=== PATIENT | male | born 1970 ===

== ENCOUNTER 2017-04-05 06:10 | Day surgery (SDC) | payer BC ==
[2017-03-29 12:19] VITALS: BMI 32.8
[2017-04-05] MEDS ORDERED: Lidocaine 2% Inj (20ml) ONE (06:34)
[2017-04-05] MEDS ORDERED: Phenylephrine 10 mg/ml Inj ONE (06:34)
[2017-04-05] MEDS ORDERED: HEPARIN SODIUM/NS 2,000 ML IV ONE (06:35)
[2017-04-05] MEDS ORDERED: Iohexol 350mgl/ml 50 ML ONE (06:35)
[2017-04-05] MEDS ORDERED: Iodixanol 320 MG/ML 100 ML BOTTLE IV ONE (06:35)
[2017-04-05] MEDS ORDERED: Nitroglycerin 50mg in D5W 50 MG/250 ML BOTTLE IV ONE (06:35)
[2017-04-05] MEDS ORDERED: Iodixanol 320 MG/ML 200 ML BOTTLE IV ONE ×2 (06:35→08:51)
[2017-04-05] MEDS ORDERED: Midazolam 2 MG/2 ML VIAL ONE ×3 (07:02→08:47)
[2017-04-05 07:13] LABS: BASO # 0.03 K/mm3 (0.0-2.0); BASO % 0.3 % (0.0-3.0); EOS # 0.2 (0.0-0.7); EOS % 2.4 % (1.5-5.0); GRAN # 4.4 (1.4-6.5); GRAN % 46.8 % (50.0-68.0); HEMOGLOBIN 15.2 g/dL (14.0-18.0); LYMPH # 4.1 (1.2-3.4); LYMPH % 43.5 % (22.0-35.0); MEAN CELL VOLUME 93.3 fl (80.0-105.0); MEAN CORPUSCULAR HEMOGLOBIN 30.9 pg (25.0-35.0); MEAN CORPUSCULAR HGB CONC 33.1 g/dl (31.0-37.0); MEAN PLATELET VOLUME 9.3 fl (7.0-11.0); MONO # 0.7 (0.1-0.6); RBC 4.92 10^6/uL (3.5-6.1); RED CELL DISTRIBUTION WIDTH 13.4 % (11.5-14.5); WHITE BLOOD COUNT 9.4 10^3/ul (4.5-11.0)
[2017-04-05 07:23] LABS: BLOOD UREA NITROGEN 20 mg/dL (7-21); GFR AFRICAN-AMERICAN > 60; GFR NON-AFRICAN AMERICAN > 60; PARTIAL THROMBOPLASTIN TIME 33.1 Seconds (25.1-36.5)
[2017-04-05] MEDS ORDERED: HEPARIN SODIUM/NS 1,000 ML IV ONE (08:51)
[2017-04-05] MEDS ORDERED: Sodium Chloride 0.9% 1,000 ML IV SCH (09:30)
--- NOTE | 2017-04-05 10:35 | CARDCATH ---
PROCEDURE DATE: 04/05/2017 HISTORY: The patient is a 46-year-old male who is status post acute inferior wall myocardial infarction, treated in [place] with a combination of PTCA and coronary artery bypass surgery. Multiple efforts to obtain the medical records from [facility] were unsuccessful and scanty. The patient underwent a stress test which showed apical and inferior ischemic areas. The patient continues to experience ongoing chest pain. Because of this, a cardiac catheterization was recommended. PROCEDURES: Left heart catheterization with coronary arteriography, left ventriculogram, CARVAJAL angiogram, IVUS of the left main artery as well as PTCA of the distal LAD through the CARVAJAL were performed. There were no complications. The right femoral artery was cannulated with a 6-Armenian sheath. There were no complications. I performed moderate sedation, which included the presence of an independent trained observer that assisted in monitoring the patient's level of consciousness and physiologic status. After administration of Versed and fentanyl, my intra service time was 30 minutes. The findings on catheterization revealed left ventricle that revealed a severely hypokinetic inferoapical region. The anterior wall contracted well. Estimated ejection fraction is approximately 45%. His coronary anatomy revealed a right dominant circulation. The RCA revealed patent stents in the proximal and midportion of the RCA with good flow. The left main artery revealed ostial stenosis with an IVUS, evaluation of a 60% stenosis in the proximal left main artery stenoses. The circumflex artery and obtuse marginal branches revealed diffuse intimal irregularities without critical stenoses. The LAD revealed a 90% stenosis in the proximal portion as well as a 80% stenosis at the takeoff of a diagonal vessel. The rest of the LAD revealed to-and-fro flow consistent with a bypass graft. The CARVAJAL was visualized and found to be anastomosed to the distal LAD. The CARVAJAL was patent. At the anastomotic site with the coronary arteries, there was a 99% stenoses in the apex of the LAD just after the anastomotic site. There was retrograde flow to the LAD and partially into the diagonal vessel through the CARVAJAL. The patient was started on intravenous Angiomax. IVUS of the left main artery revealed an ostial as well as midbody eccentric 60% stenosis of the left main artery. The guiding catheter was placed in the ostium of the CARVAJAL. An ATW wire and finally was used to cross the critical lesion in the LAD after the anastomotic site. Attempts at using a 2.0 and a 1.5 balloon could not cross the diffusely diseased and small portion of the apical LAD. The proximal portion of the lesion was dilated with 1.5 without significant improvement of the stenosis. The procedure was aborted. The manual compression was used to close the femoral artery site. The patient tolerated the procedure well. In summary, the procedure revealed attempted PTCA of the apical critical lesion of the LAD through the CARVAJAL. Coronary arteriography revealed a left main artery of 60% confirmed by IVUS. There are critical lesions in the proximal LAD as well as the mid LAD at the takeoff of the diagonal vessel. The circumflex artery was free of significant disease. There is patent stents in the RCA. There is a patent CARVAJAL to the LAD with only retrograde filling of the LAD and partially down the diagonal vessel. Given these findings, the patient's treatment will be continued medical therapy. The patient is at risk for progressive coronary artery disease. He will need to remain on aspirin indefinitely and Brilinta at reduced doses for at least a year. He needs to undergo a strict cardiac risk reduction program. Quang Steve MD
--- NOTE | 2017-04-05 17:02 | CARD ---
APPROVED REPORT EKG Measurement Heart [id number] [place] 156P6 [id number] <Conclusion> Normal sinus rhythm Left axis deviation Minimal voltage criteria for LVH, may be normal variant Inferior infarct, age undetermined Abnormal ECG
--- NOTE | 2017-04-05 17:06 | CARD ---
APPROVED REPORT EKG Measurement Heart [id number] [place] 158P22 [id number] <Conclusion> Normal sinus rhythm Left axis deviation Moderate voltage criteria for LVH, may be normal variant Lateral infarct, age undetermined Inferior infarct, age undetermined Abnormal ECG
[2017-04-05 17:50] VITALS: RESP 20
[2017-04-06 01:18] VITALS: TEMP 98
[2017-04-06 06:13] VITALS: O2SAT 98
[2017-04-06 06:18] LABS: BASO # 0.02 K/mm3 (0.0-2.0); BASO % 0.2 % (0.0-3.0); EOS # 0.2 (0.0-0.7); EOS % 2.6 % (1.5-5.0); GRAN # 4.32 (1.4-6.5); GRAN % 53.9 % (50.0-68.0); HEMOGLOBIN 14.6 g/dL (14.0-18.0); LYMPH % 37.2 % (22.0-35.0); MEAN CELL VOLUME 92.5 fl (80.0-105.0); MEAN CORPUSCULAR HEMOGLOBIN 31.1 pg (25.0-35.0); MEAN CORPUSCULAR HGB CONC 33.6 g/dl (31.0-37.0); MEAN PLATELET VOLUME 9.3 fl (7.0-11.0); MONO # 0.5 (0.1-0.6); MONO % 6.1 % (1.0-6.0); RBC 4.69 10^6/uL (3.5-6.1); RED CELL DISTRIBUTION WIDTH 13.4 % (11.5-14.5)
[2017-04-06 06:39] LABS: BLOOD UREA NITROGEN 13 mg/dL (7-21); CALCIUM 9.9 mg/dL (8.4-10.5); GFR AFRICAN-AMERICAN > 60; GFR NON-AFRICAN AMERICAN > 60
[2017-04-06 10:10] VITALS: BP 142/86; PULSE 85
--- NOTE | 2017-04-06 11:59 | PN ---
DATE: 04/06/2017 SUBJECTIVE: The patient is chest-pain free, ambulating on the floor without symptoms. OBJECTIVE: VITAL SIGNS: Blood pressure is 134/89, heart rate is in the 80s. NECK: Negative JVD. LUNGS: Without rales. HEART: Reveal S1, S2. EXTREMITIES: Without edema. The right groin site is stable. LABORATORY DATA: Hemoglobin is 14.6. Chemistries, BUN and creatinine are unremarkable. IMPRESSION: 1. Status post coronary artery bypass surgery. 2. Status post percutaneous coronary intervention. 3. History of inferior wall myocardial infarction. 4. Chest pain which is more likely from his sternotomy. 5. Hypercholesterolemia. 6. Hypertension. Given these findings, I have discussed with the patient a cardiac risk reduction program. We will DC telemetry today. The patient can be discharged. Followup and instructions were given to the patient in detail. Quang Steve MD
--- NOTE | 2017-04-06 17:50 | CARD ---
APPROVED REPORT EKG Measurement Heart [id number] [place] 158P5 [id number] <Conclusion> Normal sinus rhythm Left axis deviation Minimal voltage criteria for LVH, may be normal variant Inferior infarct, age undetermined T wave abnormality, consider anterolateral ischemia Abnormal ECG
== END 2017-04-06 11:28 | disposition home or self-care (01) ==
LOC: CATH 06:10 → 2RSO 09:50 → UNDOADMIN 09:50 → 2RSO 09:51 → CATH 04-06 11:12 → UNDODISIN 04-06 11:28
PROVIDERS: ATTEND Internal Medicine Cardiovascular Disease
DX: I25.110 Atherosclerotic heart disease of native coronary artery with unstable angina pectoris (principal); I25.2 Old myocardial infarction; E78.00 Pure hypercholesterolemia, unspecified; Z95.1 Presence of aortocoronary bypass graft
CPT/HCPCS: 36415 ×2; 80048 ×2; 85025 ×2; 85610; 85730; 86850; 86900; 92920; 93005 ×2; 93459; 99152; 99153; C1725 ×3; C1753; C1769 ×4; C1887 ×2; C2629; J0583; J1644; J2250; J3010; J7040 ×2; Q9967 ×2

== ENCOUNTER 2018-04-19 08:12 | Outpatient (CLI) | payer BC | END 2018-04-19 08:13 | disposition home or self-care (01) | LOC: CARDIO 08:12 ==

== ENCOUNTER 2018-04-26 06:22 | Day surgery (SDC) | payer BC ==
[2018-04-23 14:35] VITALS: BMI 30.4
[2018-04-26 07:06] LABS: BASO # 0.02 K/mm3 (0.0-2.0); BASO % 0.2 % (0.0-3.0); EOS # 0.3 (0.0-0.7); EOS % 2.5 % (1.5-5.0); GRAN # 4.48 (1.4-6.5); GRAN % 44.3 % (50.0-68.0); HEMOGLOBIN 16.5 g/dL (14.0-18.0); LYMPH # 4.9 (1.2-3.4); LYMPH % 48.5 % (22.0-35.0); MEAN CELL VOLUME 92.5 fl (80.0-105.0); MEAN CORPUSCULAR HEMOGLOBIN 31.5 pg (25.0-35.0); MEAN CORPUSCULAR HGB CONC 34.1 g/dl (31.0-37.0); MEAN PLATELET VOLUME 9.1 fl (7.0-11.0); MONO # 0.5 (0.1-0.6); MONO % 4.5 % (1.0-6.0); RBC 5.23 10^6/uL (3.5-6.1); RED CELL DISTRIBUTION WIDTH 12.2 % (11.5-14.5); WHITE BLOOD COUNT 10.1 10^3/uL (4.5-11.0)
[2018-04-26 07:14] LABS: INR 0.92; PARTIAL THROMBOPLASTIN TIME 32.2 Seconds (25.1-36.5); PROTHROMBIN TIME 10.6 SECONDS (9.4-12.5)
[2018-04-26 07:19] LABS: BLOOD UREA NITROGEN 17 mg/dL (7-21); CALCIUM 9.9 mg/dL (8.4-10.5); GFR NON-AFRICAN AMERICAN > 60; HDL CHOLESTEROL 31 mg/dL (29-60)
[2018-04-26 07:30] LABS: LDL CHOLESTEROL 92 mg/dL (0-129)
[2018-04-26] MEDS ORDERED: Lidocaine 2% Inj (20ml) ONE (08:27)
[2018-04-26] MEDS ORDERED: Phenylephrine 10 mg/ml Inj ONE (08:27)
[2018-04-26] MEDS ORDERED: Iohexol 350mgl/ml 50 ML ONE (08:28)
[2018-04-26] MEDS ORDERED: Iohexol 350 MG/100 ML VIAL ONE (08:28)
[2018-04-26] MEDS ORDERED: Midazolam 2 MG/2 ML VIAL ONE ×3 (09:09→09:29)
[2018-04-26] MEDS ORDERED: Iodixanol 320 MG/ML 100 ML BOTTLE IV ONE (09:33)
[2018-04-26] MEDS ORDERED: Sodium Chloride 0.9% 1,000 ML IV SCH (10:45)
--- NOTE | 2018-04-26 11:28 | CARDCATH ---
PROCEDURE DATE: 04/26/2018 HISTORY: The patient is a 47-year-old male with history of coronary artery bypass surgery, multiple stents as well as an inferior wall NJ in the past who presents with an abnormal stress test with a decreasing LV function, because of this, cardiac catheterization was recommended. PROCEDURE: Left heart catheterization with coronary arteriography, left ventriculogram, CARVAJAL angiogram, supra-aortic valvular injection as well as followed by PTCA and stent of the proximal LAD. The right femoral artery was cannulated with 6-Armenian sheath. There were no complications. I performed moderate sedation which included the presence of an independent trained observer that assisted in monitoring the patient's level of consciousness and physiologic status. After administration of Versed and fentanyl, my intra service time was 45 minutes. The findings on catheterization revealed a left ventricle that revealed a normal chula anterior apical segment. The inferobasal segment was akinetic consistent with an inferior wall NJ. Overall ejection fraction is approximately 40%. Supra-aortic valvular injection revealed no aortic insufficiency. The patient had a right dominant circulation. The RCA revealed a patent stent in the proximal midportion. The stent was a long stent. In the midportion of the stent, there is a 40%-50% stenoses noted. The left main artery had tubular narrowing throughout with discrete lesion. The LAD revealed long critical lesion in the proximal portion of 80% with a second 70%-80% stenoses at the takeoff of a large diagonal vessel. The diagonal vessel revealed diffuse atherosclerosis with a sub-occluded superior branch. The LAD revealed to-and-fro flow from the CARVAJAL. The circumflex artery revealed diffuse atherosclerosis with a subtotal occluded small first obtuse marginal branch. The CARVAJAL was found to be patent antegrade flow to the distal LAD with retrograde flow to the second diagonal vessel without retrograde flow to the first diagonal vessel. The patient was started on intravenous Angiomax on the fluoroscopic guide, the guiding catheter was placed in the in the left main artery. An 0.014 ATW wire was used to cross the critical lesion into the diagonal vessel. A 2.5 balloon was utilized to predilate the lesion. A 2.75 x 20 mm drug-eluting stent was placed and deployed extending from the proximal LAD into the takeoff of the diagonal vessel. Repeat coronary arteriography revealed an excellent result with no residual stenosis and YUKI-III flow with preservation of flow to the LAD at the diagonal vessel. Angio-Seal was used to close the femoral artery site. The patient tolerated the procedure well. In summary, the procedure was successful, a PTCA and stent of the proximal LAD and second lesion at the takeoff of a large diagonal vessel. The first diagonal vessel which is a large vessel was not protected by the CARVAJAL which is the rationale placing a stent in the proximal LAD. Preservation of the flow down the mid and distal LAD was observed with to-and-fro flow from the CARVAJAL. Coronary arteriography revealed triple-vessel CAD with a patent stent in the proximal RCA with 50% stenosis in the mid stent. The circumflex artery revealed and occluded small first obtuse marginal branch. The diagonal vessel was now patent; however, had a superior branch of the diagonal vessel that was subtotally occluded. LV function was better than reported on the stress test. Overall ejection fraction is approximately 40% with a akinetic inferobasal segment consistent with his previous inferior wall NJ. Given these findings, the patient will need to be on aspirin indefinitely and Brilinta for now the year. He needs to have an aggressive cardiac risk reduction program given his aggressive atherosclerosis. We will consider and push for the patient as well as his insurance can improve his payment. Quang Steve MD
--- NOTE | 2018-04-26 16:24 | CARD ---
APPROVED REPORT Date of service: 04/26/2018 EKG Measurement Heart [id number] [place] 150P10 [id number] <Conclusion> Normal sinus rhythm Left axis deviation Moderate voltage criteria for LVH, may be normal variant Possible Lateral infarct, age undetermined Inferior infarct, age undetermined STTW changes c/w ischemia
[2018-04-27 06:22] VITALS: TEMP 98.2
[2018-04-27 07:25] LABS: BASO # 0.01 K/mm3 (0.0-2.0); BASO % 0.1 % (0.0-3.0); EOS # 0.2 (0.0-0.7); GRAN # 4.79 (1.4-6.5); GRAN % 54.4 % (50.0-68.0); HEMOGLOBIN 15.5 g/dL (14.0-18.0); LYMPH # 3.3 (1.2-3.4); LYMPH % 37.5 % (22.0-35.0); MEAN CELL VOLUME 91.9 fl (80.0-105.0); MEAN CORPUSCULAR HEMOGLOBIN 31.4 pg (25.0-35.0); MEAN CORPUSCULAR HGB CONC 34.1 g/dl (31.0-37.0); MEAN PLATELET VOLUME 9.1 fl (7.0-11.0); MONO # 0.5 (0.1-0.6); RBC 4.94 10^6/uL (3.5-6.1); RED CELL DISTRIBUTION WIDTH 12.3 % (11.5-14.5); WHITE BLOOD COUNT 8.8 10^3/uL (4.5-11.0)
[2018-04-27 07:38] LABS: BLOOD UREA NITROGEN 14 mg/dL (7-21); CALCIUM 9.6 mg/dL (8.4-10.5); GFR NON-AFRICAN AMERICAN > 60
--- NOTE | 2018-04-27 09:08 | CARD ---
APPROVED REPORT Date of service: 04/26/2018 EKG Measurement Heart [id number] [place] 156P12 [id number] <Conclusion> Normal sinus rhythm Left axis deviation Minimal voltage criteria for LVH, may be normal variant Inferior infarct, age undetermined Abnormal ECG
--- NOTE | 2018-04-27 10:32 | PN ---
DATE: 04/27/2018 CARDIOLOGY FOLLOWUP SUBJECTIVE: The patient is ambulating without symptoms. No chest pain noted. PHYSICAL EXAMINATION: VITAL SIGNS: Blood pressure 130/84, heart rate in the 80s. NECK: Negative JVD. LUNGS: Without rales. HEART: S1, S2. EXTREMITIES: Without edema. LABORATORY DATA: Hemoglobin is 15.5, BUN and creatinine unremarkable. Glucose is 121. IMPRESSION: 1. Stable post percutaneous transluminal coronary angioplasty and stent of a proximal left anterior descending. 2. Multivessel coronary artery disease. 3. History of coronary bypass surgery. 4. Diabetes mellitus. 5. Hypercholesterolemia. 6. Hypertension. 7. Increased weight. Given these findings, the patient is stable for discharge. Followup and instructions have been given to the patient. He will follow up with me in the office prior to going back to work. His medications have been reviewed. I have discussed with the patient about the change in his diet. Quang Steve MD
[2018-04-27 10:33] VITALS: BP 132/79; PULSE 65; RESP 18; O2SAT 100
--- NOTE | 2018-04-27 11:53 | CARD ---
APPROVED REPORT Date of service: 04/27/2018 EKG Measurement Heart [id number] [place] 150P18 [id number] <Conclusion> Sinus rhythm with occasional and consecutive premature ventricular complexes Minimal voltage criteria for LVH, may be normal variant Inferior infarct, age undetermined Abnormal ECG
== END 2018-04-27 11:03 | disposition home or self-care (01) ==
LOC: CATH 06:22 → 2RSO 10:19 → CATH 04-27 11:03
PROVIDERS: ATTEND Internal Medicine Cardiovascular Disease
DX: I25.10 Atherosclerotic heart disease of native coronary artery without angina pectoris (principal); E11.9 Type 2 diabetes mellitus without complications; E78.00 Pure hypercholesterolemia, unspecified; I10 Essential (primary) hypertension; Z95.1 Presence of aortocoronary bypass graft; Z95.5 Presence of coronary angioplasty implant and graft; I25.2 Old myocardial infarction; E66.3 Overweight; Z68.33 Body mass index [BMI] 33.0-33.9, adult
CPT/HCPCS: 36415; 80048; 80061; 85025; 85610; 85730; 86850; 86900; 93005; 93459; 99152; 99153; C1725; C1760; C1769 ×2; C1874; C1887; C2629; C9600; J0583; J1644; J2250; J3010; J7030; J7040; Q9967 ×4

== ENCOUNTER 2018-07-16 06:11 | Day surgery (SDC) | payer BC ==
[2018-07-10 15:52] VITALS: BMI 32.5
[2018-07-16 07:04] LABS: BLOOD UREA NITROGEN 21 mg/dL (7-21); CALCIUM 9.2 mg/dL (8.4-10.5); GFR NON-AFRICAN AMERICAN > 60; HDL CHOLESTEROL 27 mg/dL (29-60)
[2018-07-16 07:09] LABS: BASO # 0.03 K/mm3 (0.0-2.0); BASO % 0.3 % (0.0-3.0); EOS # 0.3 (0.0-0.7); EOS % 3.2 % (1.5-5.0); HEMOGLOBIN 16.1 g/dL (14.0-18.0); LYMPH # 3.5 (1.2-3.4); LYMPH % 36.4 % (22.0-35.0); MEAN CELL VOLUME 91.3 fl (80.0-105.0); MEAN CORPUSCULAR HEMOGLOBIN 31.3 pg (25.0-35.0); MEAN CORPUSCULAR HGB CONC 34.3 g/dl (31.0-37.0); MEAN PLATELET VOLUME 9.2 fl (7.0-11.0); MONO # 0.7 (0.1-0.6); MONO % 6.7 % (1.0-6.0); RBC 5.15 10^6/uL (3.5-6.1); RED CELL DISTRIBUTION WIDTH 12.3 % (11.5-14.5); WHITE BLOOD COUNT 9.7 10^3/uL (4.5-11.0)
[2018-07-16] MEDS ORDERED: Iohexol 350mgl/ml 50 ML ONE (07:13)
[2018-07-16] MEDS ORDERED: Iodixanol 320 MG/ML 100 ML BOTTLE IV ONE ×2 (07:13→08:33)
[2018-07-16] MEDS ORDERED: Lidocaine PF 2% (5 ml) Inj (For Cardiac Arrhy) ONE (07:14)
[2018-07-16] MEDS ORDERED: Iodixanol 320 MG/ML 200 ML BOTTLE IV ONE (07:14)
[2018-07-16 07:15] LABS: LDL CHOLESTEROL 66 mg/dL (0-129)
[2018-07-16] MEDS ORDERED: Phenylephrine 10 mg/ml Inj ONE (07:15)
[2018-07-16 07:16] LABS: INR 1.05; PARTIAL THROMBOPLASTIN TIME 32.3 Seconds (26.9-38.3); PROTHROMBIN TIME 11.9 SECONDS (9.4-12.5)
[2018-07-16] MEDS ORDERED: Midazolam 2 MG/2 ML VIAL ONE ×3 (07:50→08:06)
[2018-07-16] MEDS ORDERED: Eptifibatide 20 mg/10mL Inj IVP ONE (08:57)
[2018-07-16] MEDS ORDERED: Sodium Chloride 0.9% 1,000 ML IV SCH (09:15)
--- NOTE | 2018-07-16 12:58 | CARDCATH ---
PROCEDURE DATE: 07/16/2018 HISTORY: The patient is a 48-year-old male who presents with recurrence of exertional angina. The patient's past medical history is complicated with history of coronary bypass surgery and multiple PTCAs in the past done at [facility]. Because of his ongoing symptoms, cardiac catheterization was recommended. PROCEDURES: Left heart catheterization with coronary arteriography, left ventriculogram, aortic root injection, left internal mammary artery angiogram, as well as percutaneous transluminal coronary angioplasty of a small distal left anterior descending through the left internal mammary artery anastomotic area. The left femoral artery was cannulated with 6-Qatari sheath. There were no complications. I performed moderate sedation which included the presence of an independent trained observer that assisted in monitoring the patient's level of consciousness and physiologic status. After administration of Versed and fentanyl, my intra-service time was 45 minutes. Findings on catheterization revealed a left ventricle that revealed inferior wall hypokinesis with an anterior and apical segment that moves well. Overall ejection fraction is approximately 40%. Supra-aortic valvular injection revealed no aortic insufficiency. The RCA was a dominant vessel and revealed diffuse atherosclerosis throughout its tree including the 50% to 60% stenoses in the posterior lateral branch. The left main artery revealed a 50% to 60% stenosis in its proximal portion. The LAD revealed a patent stent in its proximal portion as well as to-and-fro flow in the distal LAD after an 80% stenoses. There was good flow down the diagonal vessel which was diffusely diseased. Circumflex artery and obtuse marginal branch revealed diffuse atherosclerosis. The CARVAJAL was found to be patent and provided good antegrade flow. Distal to the anastomotic site, there is a 90% stenoses in a small apical LAD. Because of his ongoing symptoms, the patient was started on intravenous Angiomax. Under fluoroscopic guide, a CARVAJAL catheter was placed in the ostium of the CARVAJAL site. An ATW wire was used to cross the LAD past the anastomotic site. A 2.0 balloon was utilized to dilate the area up to 5 to 6 atmospheres. Repeat coronary arteriography revealed improvement of the lesion up to a 40% to 50% residual stenoses with YUKI III flow. No stent was placed due to the size of the vessel. The patient tolerated the procedure well. AngioSeal was used to close the femoral artery site. In summary, the procedure was successful PTCA of the apical LAD lesions through the CARVAJAL. No stent was placed due to the small size of the apical LAD. Cardiac catheterization revealed an EF of approximately 40% with an akinetic inferior wall. Borderline left main stenoses with a critical lesion in the apical LAD after the anastomotic site. A patent CARVAJAL was noted. Given these findings, the patient will continue on aspirin indefinitely and Plavix for a month. The patient needs to undergo a cardiac risk reduction program. Quang Steve MD
--- NOTE | 2018-07-16 17:32 | HP ---
DATE OF EXAM: 07/16/2018 HISTORY OF PRESENT ILLNESS: I saw him status post cardiac cath with Dr. Steve, where he put a stent and he comes in with a history of having chest pressure with exertion and pain and swelling in his feet with prolonged standing. He is a 48-year-old man who has a past medical history of myocardial infarction, pneumonia, coronary artery disease, high cholesterol, cardiac stents in the past, ID in the past, cardiomyopathy, CABG history, LASIK. I think this is up to his fourth stent, right now he has a AICD placement. There is cardiovascular disease in his family with his father. He has defibrillator AICD. He has had chest pain and swelling. He is lying flat right now on the [place]. ALLERGIES: HE HAS NO KNOWN DRUG ALLERGIES. MEDICATIONS: He is currently on Crestor, Ecotrin, Lasix and Zestril at home. In the hospital, he is on Ecotrin, Lipitor, Plavix, IV fluids and Zestril. REVIEW OF SYSTEMS: He has no acute vision or hearing changes. No neck pain. No sore throat. He did have chest pain. He has shortness of breath. No nausea, vomiting, constipation, diarrhea. His legs were swollen. No problems urinating. No skin issues that he knows of. PHYSICAL EXAMINATION: VITAL SIGNS: He has a 97.8 temperature, 81 pulse, 149/86 blood pressure, 18 respiratory rate, 96% O2 sat on room air. HEENT: Head is atraumatic, normocephalic. HEART: Regular rate. LUNGS: Decreased breath sounds, but clear what I could tell. ABDOMEN: Soft, obese, nontender with positive bowel sounds. EXTREMITIES: Trace edema, +1. SKIN: I could not tell the skin is lying flat on the gurney, he is to get up for 6 hours. NEUROLOGIC: Alert and oriented x3. Thyroid midline. No palpable appreciable lymphadenopathy at this time. LABORATORY DATA: He has a 9.7 white count, 16.1 hemoglobin, 47 hematocrit with 205 platelets. A 1.05 of INR. He has a 141 sodium, potassium 4.9, BUN 21, creatinine 1.1, GRF is greater than 60, sugar is 118. Calcium is 9.2, triglycerides 104, cholesterol is 109. He will be watched overnight, laid flat for 6 hours. We will check his labs tomorrow. He is here for CAD from chest pain and shortness of breath with stent placement. Timmy Waterman DO MTDOneil
[2018-07-16 18:45] VITALS: RESP 18
[2018-07-17 00:15] VITALS: TEMP 97; O2SAT 97
[2018-07-17 07:41] LABS: BASO # 0.02 K/mm3 (0.0-2.0); BASO % 0.3 % (0.0-3.0); EOS # 0.3 (0.0-0.7); EOS % 3.8 % (1.5-5.0); HEMOGLOBIN 15.2 g/dL (14.0-18.0); LYMPH % 39.3 % (22.0-35.0); MEAN CELL VOLUME 92.3 fl (80.0-105.0); MEAN CORPUSCULAR HGB CONC 33.6 g/dl (31.0-37.0); MEAN PLATELET VOLUME 9.5 fl (7.0-11.0); MONO # 0.4 (0.1-0.6); MONO % 5.8 % (1.0-6.0); RBC 4.91 10^6/uL (3.5-6.1); RED CELL DISTRIBUTION WIDTH 12.6 % (11.5-14.5); WHITE BLOOD COUNT 7.7 10^3/uL (4.5-11.0)
[2018-07-17 08:09] LABS: BLOOD UREA NITROGEN 14 mg/dL (7-21); GFR NON-AFRICAN AMERICAN > 60
[2018-07-17 08:10] LABS: ALB/GLOB RATIO 1.4 (1.1-1.8); ALBUMIN 4.1 g/dL (3.0-4.8); ALT/SGPT 43 U/L (7-56); AST/SGOT 26 U/L (17-59); CALCIUM 9.7 mg/dL (8.4-10.5)
[2018-07-17 09:02] VITALS: PULSE 92
[2018-07-17 09:37] VITALS: BP 141/72
--- NOTE | 2018-07-17 10:37 | CARD ---
APPROVED REPORT Date of service: 07/17/2018 EKG Measurement Heart [id number] [id number] 152P21 [id number] <Conclusion> Normal sinus rhythm Left axis deviation Moderate voltage criteria for LVH, may be normal variant Inferior infarct, age undetermined Anterolateral infarct, age undetermined Abnormal ECG
--- NOTE | 2018-07-17 11:25 | CARD ---
APPROVED REPORT Date of service: 07/16/2018 EKG Measurement Heart [id number] [place] 164P14 [id number] <Conclusion> Normal sinus rhythm Left axis deviation Moderate voltage criteria for LVH, may be normal variant Inferior infarct, age undetermined Abnormal ECG
--- NOTE | 2018-07-17 13:22 | PN ---
DATE: 07/17/2018 CARDIOLOGY FOLLOWUP SUBJECTIVE: The patient is asymptomatic post PTCA. PHYSICAL EXAMINATION: VITAL SIGNS: Blood pressure 114/80, heart rate in the 90s. NECK: Negative JVD. LUNGS: Without rales. HEART: S1, S2. EXTREMITIES: Without edema. The groin site is stable. LABORATORY DATA: Hemoglobin is 15. Chemistries unremarkable. ASSESSMENT AND PLAN: 1. Stable post percutaneous transluminal coronary angioplasty of the left anterior descending. 2. History of coronary artery bypass surgery. 3. Hypertension. 4. Hypercholesterolemia. Given these findings, the patient can be discharged today. He will need to remain on Plavix for approximately two weeks. Followup and instructions given to the patient in detail. Quang Steve MD
--- NOTE | 2018-07-17 21:47 | DS ---
HISTORY OF PRESENT ILLNESS: He came in, had a cardiac cath with stents placed. He is being discharged to outpatient followup. He will follow up with his primary care physician and also with Dr. Steve, driver guard. He is resting comfortably in bed. He slept well. He is eating well. No chest pain. No shortness of breath. No abdominal pain. No leg pain, also he walked to the bathroom. PHYSICAL EXAMINATION: VITAL SIGNS: He has 97 temperature, 78 pulse, 114/79 blood pressure, 18 respiratory rate, and 97% O2 sat on room air. GENERAL: He is alert, smiling, and talking. HEENT: Head is atraumatic and normocephalic. HEART: Regular rate. LUNGS: Clear to auscultation. ABDOMEN: Soft, obese, and nontender. EXTREMITIES: No edema. We discussed weight loss that will help him with his coronaries and his activity, he is to do more walking. LABORATORY DATA: His white count is 7.7, hemoglobin of 15.2, hematocrit 45.3, and platelets of 197. He has a 141 sodium, potassium 4.9, BUN 21, creatinine 1.1, GFR is greater than 60, sugar is 118, calcium is 9.2, and cholesterol is 109. MEDICATIONS: He is currently on aspirin, Lipitor, Plavix, and Zestril, though stay on his medications. PLAN: He will be discharged after Dr. Steve sees him this morning. Timmy Waterman DO
== END 2018-07-17 10:23 | disposition home or self-care (01) ==
LOC: CATH 06:11 → 2RSO 09:14 → CATH 07-17 10:23
PROVIDERS: ATTEND Internal Medicine Cardiovascular Disease
DX: I25.10 Atherosclerotic heart disease of native coronary artery without angina pectoris (principal); I25.2 Old myocardial infarction; I42.9 Cardiomyopathy, unspecified; I10 Essential (primary) hypertension; E78.00 Pure hypercholesterolemia, unspecified; Z82.49 Family history of ischemic heart disease and other diseases of the circulatory system; Z95.1 Presence of aortocoronary bypass graft; Z95.5 Presence of coronary angioplasty implant and graft
CPT/HCPCS: 36415 ×2; 80048; 80053; 80061; 82139; 85025 ×2; 85027; 85175; 85576; 85610; 85730; 86850; 86900; 92920; 93005 ×2; 93459; 99152; 99153; C1725; C1760; C1769 ×3; C1887; J0583; J1327; J1644; J2250; J3010; J7030; J7040; Q9966; Q9967 ×2